=== PATIENT | female | born 1945 | race Caucasian/White ===

== ENCOUNTER 2017-05-30 01:50 | Inpatient (IN) ==
[2017-05-23 09:04] LABS: MANUAL DIFF NEEDED? NO; URINE MICRO REVIEW NEEDED? NO; URINE SOURCE CLEAN CATCH
[2017-05-23 09:32] LABS: BASO% 0.9 % (0.0-0.8); EOS# 0.59 X1000 (0.0-0.7); EOS% 10.3 % (0.0-10.0); HEMATOCRIT 44.1 % (37.0-47.0); HEMOGLOBIN 14.8 g/dL (12.0-16.0); IMM GRAN# 0.02 X1000 (0.0-0.04); IMM GRAN% 0.3 % (0.0-0.5); LYMPH# 2.09 X1000 (1.2-3.4); LYMPH% 36.4 % (20.5-51.1); MCH 30.8 PG (27-31); MCHC 33.6 g/dL (33-37); MCV 91.9 FL (81-99); MONO# 0.46 X1000 (0.11-0.59); MPV 11.9 FL (7.4-10.4); NEUT% 44.1 % (42.2-75.2); PLT 225 X1000 (130-400)
[2017-05-23 09:35] LABS: BILIRUBIN URINE NEGATIVE (NEGATIVE); BLOOD URINE NEGATIVE (NEGATIVE); COLOR STRAW; GLUCOSE URINE NEGATIVE (NEGATIVE); LEUKOCYTES URINE NEGATIVE (NEGATIVE); NITRITE URINE NEGATIVE (NEGATIVE); PROTEIN URINE NEGATIVE (NEGATIVE); SP GRAVITY URINE 1.004; TURBIDITY URINE CLEAR (CLEAR); UROBILINOGEN URINE NORMAL (NORMAL)
--- NOTE | 2017-05-23 09:36 | EKG Report ---
Test Performed on : 05/23/2017 08:23:25 AM Test Reason : MD ORDER Blood Pressure : / mmHG Vent. Rate : 062 BPM Atrial Rate : 062 BPM P-R Int : 166 ms QRS Dur : 074 ms QT Int : 384 ms P-R-T Axes : 059 028 054 degrees QTc Int : 389 ms Normal sinus rhythm. Cannot rule out Anterior infarct , age undetermined Abnormal ECG No previous ECGs available Confirmed by Filiberto Delgadillo MD ([id number]) on 05/23/2017 12:49:32 PM
[2017-05-23 09:37] LABS: UR EPITHELIAL CELLS <10 /HPF (<10); URINE BACTERIA NEGATIVE /HPF; URINE RBC <10 /HPF (<10); URINE WBC <10 /HPF (<10)
[2017-05-23 09:44] LABS: INR 0.96; PTT 24.7 Seconds (22.0-36.0)
[2017-05-23 09:55] LABS: AGAP 18; BUN 14 mg/dL (8-22); CALCIUM 9.1 mg/dL (8.8-10.2); CHLORIDE 102 mmol/L (98-107); COSMO 288; POTASSIUM 4.9 mmol/L (3.5-5.1); SODIUM 144 mmol/L (136-145); TCO2 24 mmol/L (25-35)
[2017-05-30] MEDS ORDERED: COLACE ONE (05:36)
[2017-05-30] MEDS ORDERED: PEPCID ONE (05:36)
[2017-05-30] MEDS ORDERED: REGLAN ONE (05:36)
[2017-05-30] MEDS ORDERED: CELEBREX ONE (05:37)
[2017-05-30] MEDS ORDERED: LYRICA ONE (05:37)
[2017-05-30] MEDS ORDERED: LR 1,000 ML ONE (05:37)
[2017-05-30] MEDS ORDERED: KEFZOL 2 GM/D5W 2 GM/50 ML IVPB ONE (05:37)
[2017-05-30] MEDS ORDERED: DIPRIVAN 1% ONE (06:33)
[2017-05-30] MEDS ORDERED: XYLOCAINE-MPF 2% ONE (06:37)
[2017-05-30] MEDS ORDERED: VERSED ONE ×2 (06:38→07:42)
[2017-05-30] MEDS ORDERED: TORADOL ONE (06:39)
[2017-05-30] MEDS ORDERED: DURAMORPH ONE (06:39)
[2017-05-30] MEDS ORDERED: VANCOMYCIN ONE (06:39)
[2017-05-30] MEDS ORDERED: SODIUM CHLORIDE 0.9% ONE (06:40)
[2017-05-30] MEDS ORDERED: CYKLOKAPRON 1,000 MG/NS 1,000 MG/100 ML IVPB ONE ×2 (06:40→06:42)
[2017-05-30] MEDS ORDERED: SENSORCAINE 0.25%/EPI 1:200,000 ONE (06:40)
[2017-05-30] MEDS ORDERED: EXPAREL 1.3% ONE (06:41)
[2017-05-30] MEDS ORDERED: NEOSPORIN G.U. IRRIGANT ONE ×2 (06:41→06:42)
[2017-05-30] MEDS ORDERED: EPHEDRINE ONE (07:21)
[2017-05-30] MEDS ORDERED: FENTANYL ONE (07:21)
[2017-05-30] MEDS ORDERED: SODIUM CHLORIDE 0.9% 10 ML ONE (07:21)
[2017-05-30 08:04] LABS: URINE MICRO REVIEW NEEDED? NO; URINE SOURCE CATH
[2017-05-30] MEDS ORDERED: DECADRON ONE (08:08)
[2017-05-30 08:11] LABS: BILIRUBIN URINE NEGATIVE (NEGATIVE); BLOOD URINE NEGATIVE (NEGATIVE); COLOR YELLOW; GLUCOSE URINE NEGATIVE (NEGATIVE); LEUKOCYTES URINE NEGATIVE (NEGATIVE); NITRITE URINE NEGATIVE (NEGATIVE); PH URINE 5.5; PROTEIN URINE TRACE mg/dL (NEGATIVE); TURBIDITY URINE CLEAR (CLEAR); UR EPITHELIAL CELLS <10 /HPF (<10); URINE BACTERIA NEGATIVE /HPF; URINE RBC <10 /HPF (<10); URINE WBC <10 /HPF (<10); UROBILINOGEN URINE NORMAL (NORMAL)
[2017-05-30] MEDS ORDERED: ZOFRAN ONE (08:31)
[2017-05-30] MEDS ORDERED: OFIRMEV 1000 MG/ISOTONIC SOLN 1,000 MG/100 ML BOTTLE ONE (08:31)
[2017-05-30] MEDS ORDERED: NS 1,000 ML ONE (09:38)
--- NOTE | 2017-05-30 09:55 | Diag Imaging Result Doc PS360 ---
EXAM: KNEE 1-2 VIEWS-RIGHT HISTORY: post op TKR Right TECHNIQUE: COMPARISON: None. FINDINGS: There has been recent orthopedic replacement of the right knee. There are anterior skin snehal and a superior surgical drain. No fracture. No dislocation. IMPRESSION: Good alignment to the femoral and tibial components following orthopedic replacement of the right knee. Electronically signed by Truman Soliz 05/30/2017 9:52 AM
--- NOTE | 2017-05-30 10:51 | OPERATIVE NOTE ---
PROCEDURE DATE: 05/30/2017 PREOPERATIVE DIAGNOSIS: Degenerative osteoarthritis, right knee. POSTOPERATIVE DIAGNOSIS: Degenerative osteoarthritis, right knee. PROCEDURE PERFORMED: Right total knee arthroplasty. IMPLANTS: DePuy Attune size 6 narrow posterior stabilized femur, size 6 tibial tray, a 7 mm rotating platform tibial insert, and a 35 mm medialized anatomic patella. SURGEON: Dr. Jett Jones. [employer]: BLANCA Wallace. SECOND MEDICAL CODER: Jose Manuel Rojas RN. ANESTHESIA: Spinal. IV FLUIDS: 2000 mL lactated Ringer's. ESTIMATED BLOOD LOSS: 30 mL. COMPLICATIONS: None. INDICATION: The patient is a pleasant, 72-year-old female with a chronic history of worsening pain and discomfort of the right knee. Continued pain and discomfort despite appropriate nonoperative treatment. X-rays revealed degenerative osteoarthritis. Recommendation to proceed with right total knee arthroplasty was offered. Risks and benefits of surgery were explained including the risks of anesthesia, , bleeding, infection, failure to relieve pain, postoperative stiffness, nerve injury, blood clots, and other imponderables. All questions were answered. The patient and family wished to proceed with surgery. DETAILS OF OPERATION: The patient was taken to the operating room and placed supine on the operating table. Once adequate anesthesia was obtained, the patient's right lower extremity was subsequently prepped and draped in the usual sterile fashion. Esmarch was used to exsanguinate the right lower extremity. The tourniquet was inflated to 350 mmHg. A standard anterior incision was made with a skin knife. Medial and lateral skin envelopes were developed. Standard medial parapatellar arthrotomy was then performed. Patella fat pad was excised. Retractors were then placed and approximately 1 cm anterior to the PCL insertion, a starting reamer was passed. Intramedullary guide with a distal femoral cutting block was pinned in position. Distal femoral cut was then performed in a standard fashion. A sizing block was placed and measured size 6. Corresponding pins were placed. A size 6 cutting block was placed in position. Anterior, posterior, and chamfer cuts were then made. Attention then turned to the proximal tibia where using the extramedullary guide, the proximal tibia cutting block was pinned in position. Had good alignment confirmed with the alignment zhanna. The proximal tibia was then resected. The medial and lateral meniscus was excised, along with further resection of the ACL and PCL. A curved osteotome was used to remove the posterior osteophytes. A spacer block was placed and had good soft tissue balance in both flexion and extension. A size 6 tibial tray appeared to be the correct size. It was pinned in position. This was followed by a central reamer and a fin punch. A box cutting guide was then pinned on the distal femur. A box cut was performed. The trial femoral component was then placed and 2 lug holes were drilled. A trial tibial insert was then placed and had good soft tissue balancing. Patella was everted and resected in standard fashion. A 35 mm appeared to be the correct size. Corresponding holes were drilled. Trial tibial insert was then placed and had good patellofemoral tracking. The components were then removed. Copious irrigation was then performed with antibiotic irrigation while vancomycin was mixed with cement on the back table. Sequential cementing was then performed, first with the tibial tray and excess cement was removed with a Kenneth, followed by the femoral component and excess cement was removed with a Kenneth. The trial tibial insert was then placed, and full extension and axial loading were maintained while cement cured. The patella was cemented in a standard fashion. A patella clamp was placed. While the cement was curing, Exparel was placed in the deep tissue as well as subcutaneous tissue. After the cement had cured, the peripheral cement was removed with a small osteotome. A 7 mm rotating platform tibial insert had good soft tissue balance and good range of motion. The trial insert was removed. Exparel was then placed in the posterior capsule. Copious irrigation was performed once again with antibiotic pulsatile lavage. This followed by a 7 mm rotating platform tibial insert. The knee was then carried through range of motion. It had good soft tissue balance and good range of motion, and good patellofemoral tracking. A 1/8 Hemovac drain was placed but was not sewn in. Copious irrigation was then performed once again. This followed by #1 Vicryl to repair the arthrotomy, followed by 2-0 Vicryl to repair the subcutaneous tissue, and skin snehal. Adaptic, sterile 4 x 4s, ABD pad, Webril, cryounit, and an Milton wrap were applied to the right lower extremity. Patient tolerated the procedure well with no complications and was transferred to the recovery room in stable condition. TOURNIQUET TIME: 90 minutes at 350 mmHg. cc: Jett Jones MD
[2017-05-30] MEDS ORDERED: MORPHINE IV PRN (11:45)
[2017-05-30] MEDS ORDERED: MILK OF MAGNESIA PO PRN (11:45)
[2017-05-30] MEDS ORDERED: ZOFRAN PO PRN (11:45)
[2017-05-30] MEDS: TRANDATE PO SCH ×2 (12:06→21:15)
[2017-05-30] MEDS: NEURONTIN PO SCH ×2 (12:07→21:16)
[2017-05-30] MEDS: COZAAR PO SCH (12:08)
[2017-05-30] MEDS: AMARYL PO SCH ×2 (12:09→21:16)
[2017-05-30] MEDS: NS 1,000 ML IV SCH ×2 (12:10→21:15)
[2017-05-30] MEDS: TYLENOL PO SCH ×3 (12:16→23:11)
[2017-05-30] MEDS ORDERED: KEFZOL 1 GM/D5W 1 GM/50 ML IVPB IV SCH (15:00)
[2017-05-30] MEDS: OXY IR PO PRN ×3 (15:25→23:09)
[2017-05-30] MEDS ORDERED: KEFZOL 1 GM/D5W 1 GM/50 ML IVPB IV ONE (16:27)
[2017-05-30] MEDS ORDERED: SYNTHROID PO SCH (21:00)
[2017-05-30] MEDS ORDERED: CRESTOR PO SCH (21:00)
[2017-05-30] MEDS ORDERED: MAGNESIUM GLUCONATE PO SCH (21:00)
[2017-05-30] MEDS: PERIDEX MT SCH (21:15)
[2017-05-30] MEDS: COLACE PO SCH (21:15)
[2017-05-31] MEDS ORDERED: KEFZOL 2 GM/D5W 2 GM/50 ML IVPB IV SCH (00:01)
[2017-05-31] MEDS: NS 1,000 ML IV SCH ×2 (00:21→11:57)
[2017-05-31] MEDS: OXY IR PO PRN ×4 (03:50→10:41)
[2017-05-31 05:38] LABS: HEMATOCRIT 35.7 % (37.0-47.0); HEMOGLOBIN 11.9 g/dL (12.0-16.0)
[2017-05-31] MEDS: TYLENOL PO SCH ×3 (05:42→11:56)
[2017-05-31 05:55] LABS: AGAP 11; BUN 14 mg/dL (8-22); CALCIUM 8.4 mg/dL (8.8-10.2); CHLORIDE 104 mmol/L (98-107); COSMO 283; POTASSIUM 4.6 mmol/L (3.5-5.1); SODIUM 140 mmol/L (136-145); TCO2 25 mmol/L (25-35)
[2017-05-31] MEDS ORDERED: XARELTO PO SCH (06:00)
--- NOTE | 2017-05-31 08:38 | PROGRESS NOTE ---
DATE: 05/31/2017 SUBJECTIVE: The patient is a pleasant, 72-year-old female who is 1 day status post right total knee arthroplasty. Patient is currently resting comfortably. She has no complaints. She was able to ambulate yesterday afternoon with therapy. OBJECTIVE: On physical exam, the patient's right lower extremity dressing is intact. Calf is soft. She has active dorsiflexion and plantar flexion. LABORATORY: Hemoglobin is 11.9, hematocrit 35.7. IMPRESSION: Postoperative day #1 status post right total knee arthroplasty. PLAN: At this point, discussed treatment options with the patient and family. At this time we will change her dressing, discontinue her drain and [place]. We will also Hep-Lock her IV. We will plan on discharging home after physical therapy. Patient will receive home physical therapy. She will follow up on 06/12/2017 in the office. cc: Jett Jones MD
[2017-05-31] MEDS ORDERED: PEPCID PO SCH (09:00)
[2017-05-31] MEDS: TRANDATE PO SCH (09:25)
[2017-05-31] MEDS: NEURONTIN PO SCH (09:26)
[2017-05-31] MEDS: AMARYL PO SCH (09:26)
[2017-05-31] MEDS: COLACE PO SCH (09:26)
[2017-05-31] MEDS: COZAAR PO SCH (09:26)
[2017-05-31] MEDS: PERIDEX MT SCH (09:26)
[2017-05-31 11:17] VITALS: BP 126/68
== END 2017-05-31 13:23 | disposition home health service (06) ==
LOC: SURHOLD 01:50 → 4N 08:19
PROVIDERS: ADMIT Orthopaedic Surgery Adult Reconstructive Orthopaedic Surgery; ATTEND Orthopaedic Surgery Adult Reconstructive Orthopaedic Surgery